=== PATIENT | female | born 1975 | race Caucasian/White ===

== ENCOUNTER 2021-10-23 12:48 | Emergency (ER) | payer BC, SELFPAY ==
[2021-10-23 14:49] LABS: #Eosinphils 0.2 10x3/uL (0.0-0.5); #Monocytes 0.5 10x3/uL (0.0-1.1); #Neutrophils 5.9 10x3/uL (1.5-8.4); %Basophils 0.4 % (0.0-2.0); %Monocytes 5.1 % (0.0-10.0); %Neutrophils 61.3 % (40.0-75.0); Hemoglobin 13.6 g/dL (12.0-15.5); Mean Corpuscular HGB CONC 32.8 g/dL (32.0-36.0); Mean Corpuscular Hemoglobin 30.5 pg (27.0-33.0); Mean Platelet Volume 9.1 fl (7.4-10.4); Platelet Count 263 10x3/uL (150-450); RBC Distribution Width 13.4 % (11.5-14.5); Red Blood Cell (RBC) Count 4.46 10x6/uL (3.90-5.03); White Blood Cell (WBC) Count 9.6 10x3/uL (3.5-10.5)
[2021-10-23 14:59] LABS: ALT (SGPT) 10 U/L (8-55); AST (SGOT) 14 U/L (5-34); Albumin 4.2 g/dL (3.5-5.0); Alkaline Phosphatase 69 U/L (40-110); Anion Gap 11 mmol/L (10-20); BUN (Urea Nitrogen) 11 mg/dL (7.0-18.7); Bilirubin, Total 0.6 mg/dL (0.2-1.2); Calc. Creatinine Clearance 0 mL/min (70-130); Calcium 9.4 mg/dL (7.8-10.44); Carbon Dioxide 28 mmol/L (22-29); Chloride 105 mmol/L (98-107); Globulin 3.3 g/dL (2.4-3.5); Glucose 82 mg/dL (70-105); Potassium 4.1 mmol/L (3.5-5.1); Protein, Total 7.5 g/dL (6.0-8.3); Sodium 140 mmol/L (136-145)
[2021-10-23] MEDS ORDERED: Ondansetron ODT 4 MG TAB ONE (19:03)
[2021-10-23] MEDS ORDERED: Acetaminophen 500 MG TAB ONE (19:04)
[2021-10-23] MEDS ORDERED: Ketorolac Tromethamine 30 MG/ML VIAL ONE (19:04)
== END 2021-10-23 19:41 | disposition home or self-care (01) ==
LOC: CSHERS 12:48
DX: B34.9 Viral infection, unspecified (principal); I11.0 Hypertensive heart disease with heart failure; I50.9 Heart failure, unspecified; G43.909 Migraine, unspecified, not intractable, without status migrainosus; Z86.73 Personal history of transient ischemic attack (TIA), and cerebral infarction without residual deficits; F17.210 Nicotine dependence, cigarettes, uncomplicated; E78.5 Hyperlipidemia, unspecified
CPT/HCPCS: 36415; 80053; 85025; 96372; 99284; J1885; Q0162

== ENCOUNTER 2023-02-01 14:25 | Emergency (ER) | payer BC, OTHER ==
[2023-02-01] MEDS ORDERED: Ketorolac Tromethamine 30 MG/ML VIAL ONE (17:15)
[2023-02-01] MEDS ORDERED: Ibuprofen 200 MG TAB ONE (17:18)
== END 2023-02-01 18:10 | disposition home or self-care (01) ==
LOC: CSHERS 14:25
DX: M79.674 Pain in right toe(s) (principal); L03.115 Cellulitis of right lower limb; E78.5 Hyperlipidemia, unspecified; I11.0 Hypertensive heart disease with heart failure; I50.9 Heart failure, unspecified; F17.210 Nicotine dependence, cigarettes, uncomplicated
CPT/HCPCS: J1885

== ENCOUNTER 2024-04-28 18:32 | Emergency (ER) | payer BC ==
[2024-04-28] MEDS ORDERED: Metoclopramide HCl 10 MG (2 mL) VIAL ONE (19:36)
[2024-04-28] MEDS ORDERED: Ketorolac Tromethamine 30 MG (1 mL) VIAL ONE ×2 (19:36→20:40)
[2024-04-28] MEDS ORDERED: Metoclopramide 10 MG/10 ML UDCUP ONE (20:41)
== END 2024-04-28 22:38 | disposition home or self-care (01) ==
LOC: CSHERS 18:32
DX: G43.909 Migraine, unspecified, not intractable, without status migrainosus (principal); I11.0 Hypertensive heart disease with heart failure; I50.9 Heart failure, unspecified; Z87.891 Personal history of nicotine dependence
CPT/HCPCS: 96372; 99283; J1885; J2765

== ENCOUNTER 2024-11-03 17:38 | Emergency (ER) | payer BC | END 2024-11-03 19:17 | disposition home or self-care (01) | LOC: CSHERS 17:38 | DX: S76.012A Strain of muscle, fascia and tendon of left hip, initial encounter (principal); I11.0 Hypertensive heart disease with heart failure; I50.9 Heart failure, unspecified; Z95.5 Presence of coronary angioplasty implant and graft; Z87.891 Personal history of nicotine dependence; X50.0XXA Overexertion from strenuous movement or load, initial encounter; Y93.89 Activity, other specified | CPT/HCPCS: 99283 ==